=== PATIENT | male | born 1970 | race Caucasian/White ===

== ENCOUNTER 2017-03-19 21:41 | Inpatient (IN) | payer OTHER ==
[~2017-03-19] VITALS: Ht 180.3 cm; Wt 113.4 kg
[2017-03-19 21:51] VITALS: BP 132/83
--- NOTE | 2017-03-19 22:27 | NUR ---
TO ER BED 7
--- NOTE | 2017-03-19 22:30 | NUR ---
47 Y/O M W/C/O CHEST/BACK PAIN, CHIILLS AND ABCESS ON GROIN AREA. DENIES, FEVER, NAUSEA OR VOMITING. 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 ER MD MADE AWARE.
[2017-03-19] MEDS ORDERED: ASPIRIN 325 MG TAB PO ONE (23:00)
[2017-03-19] MEDS ORDERED: NITROGLYCERIN 0.4 MG TAB SL ONE (23:00)
[2017-03-19 23:23] LABS: BASOPHILS # (AUTO) 0.2 K/uL (0.00-0.22); BASOPHILS % (AUTO) 2.2 % (0.0-2.0); EOSINOPHILS # (AUTO) 0.3 K/uL (0-0.4); EOSINOPHILS % (AUTO) 4.7 % (0.0-4.0); HEMATOCRIT 43.2 % (36-52); HEMOGLOBIN 14.3 g/dL (12.0-18.0); LYMPHOCYTES # (AUTO) 2.6 K/uL (2.0-11.5); LYMPHOCYTES % (AUTO) 36.5 % (20.5-51.1); MEAN CORPUSCULAR HEMOGLOBIN 28 pg (27-31); MEAN CORPUSCULAR HGB CONC 33 g/dL (33-37); MEAN CORPUSCULAR VOLUME 85 fL (80-94); MONOCYTES # (AUTO) 0.4 K/uL (0.8-1.0); MONOCYTES % (AUTO) 5.1 % (1.7-9.3); NEUTROPHILS # (AUTO) 3.8 K/uL (1.8-7.7); NEUTROPHILS % (AUTO) 51.5 % (42.2-75.2); PLATELET COUNT (AUTO) 193 K/uL (140-450); RED BLOOD CELL COUNT(AUTO) 5.11 MIL/uL (4.20-6.10); RED CELL DISTRIBUTION WIDTH 12.8 % (11.6-13.7); WHITE BLOOD COUNT (AUTO) 7.3 K/uL (4.8-10.8)
[2017-03-19 23:36] LABS: ANION GAP 12.8 (8-16); CALCIUM 8.3 mg/dL (8.5-10.1); CARBON DIOXIDE 28.2 mmol/L (21-32); CREATININE 1.1 mg/dL (0.6-1.3)
[2017-03-19 23:43] LABS: ALBUMIN 3.7 g/dL (3.4-5.0); TOTAL BILIRUBIN 0.3 mg/dL (0.0-1.0); TOTAL PROTEIN, SERUM 7.1 g/dL (6.4-8.2)
[2017-03-19 23:56] LABS: CREATINE KINASE MB 2.2 ng/mL (0-3.6)
[2017-03-20] MEDS ORDERED: DIAZEPAM 5 MG TAB PO ONE (00:10)
[2017-03-20] MEDS ORDERED: ACETAMINOPHEN 325 MG TAB PO PRN (01:00)
[2017-03-20] MEDS ORDERED: MORPHINE SULFATE 2 MG/ML SYR IVP PRN (01:00)
[2017-03-20] MEDS ORDERED: DOCUSATE SODIUM 100 MG GELCAP PO PRN (01:00)
[2017-03-20] MEDS ORDERED: ONDANSETRON 4 MG/2 ML VIAL IVP PRN (01:00)
--- NOTE | 2017-03-20 01:05 | NUR ---
Patient will be admitted to care of [facility]. Admited to TELEMETRY. Will go to [facility]. Belongings list completed. Report to LOI ANDERSON.
[2017-03-20] MEDS ORDERED: LISINOPRIL 5 MG TAB PO SCH ×2 (01:15→21:00)
[2017-03-20] MEDS ORDERED: ATORVASTATIN 20 MG TAB PO SCH ×2 (01:15→21:00)
--- NOTE | 2017-03-20 01:17 | NUR ---
PT TRASFERRED TO TELEMETRY VIA GURNEY. ACCOMPANIED BY RN AND EMT, NO S/S OF DISTRESS NOTED ON TRASFER.
[2017-03-20 01:30] VITALS: BP 150/77
[2017-03-20 01:30] LABS: INR 1.1 (0.8-1.2); PARTIAL THROMBOPLASTIN TIME 26.2 secs (22-35.6); PROTHROMBIN TIME 10.2 secs (10.8-13.4)
--- NOTE | 2017-03-20 01:35 | NUR ---
Admitted a 47 y/o male from ED via DENICE mckee accompanied by .Pt chief complaint of BACK PAIN and DIFFICULTY BREATHING RADIATING TO LT SHOULDER. No acute respiratory distress. No c/o pain or any discomfort at this time. Saline lock gauge 22 to left AC, intact and patent with no s/s of infiltration. Skin intact, no swelling observed at this time. Oriented pt to call light, bed, phone,television, bathroom, smoking policy, visiting hours, procedures, ID bracelet on. Plan of care discussed with patient and , both verbalized understanding. Call light placed within reach. Will continue to monitor.
[2017-03-20 01:39] LABS: CHOL/HDL RATIO 8.6 (1-4.5); MAGNESIUM 2.3 mg/dL (1.8-2.4); PHOSPHORUS 3.1 mg/dL (2.5-4.9); THYROID STIMULATING HORMONE 1.28 uIU/mL (0.34-3.76)
[2017-03-20] MEDS ORDERED: LISINOPRIL 10 MG TAB ONE (01:47)
[2017-03-20] MEDS ORDERED: METOPROLOL 25 MG TAB ONE (01:52)
[2017-03-20] MEDS: METOPROLOL 25 MG TAB PO SCH ×3 (01:52→20:40)
[2017-03-20 02:40] LABS: APPEARANCE,URINE CLEAR (CLEAR); BILIRUBIN,URINE NEGATIVE (NEGATIVE); BLOOD, URINE NEGATIVE (NEGATIVE); COLOR,URINE YELLOW (YELLOW); LEUKOCYTE ESTERASE ,URINE NEGATIVE (NEGATIVE); NITRITE, URINE NEGATIVE (NEGATIVE); PROTEIN,URINE NEGATIVE (NEGATIVE); UGLUCOSE NEGATIVE (NEGATIVE)
[2017-03-20 02:49] LABS: AMPHETAMINE, URINE NEG. ng/ml (NEG <=1000); BARBITURATE, URINE NEG. ng/ml (NEG <=200); BENZODIAZEPINE, URINE NEG. ng/mL (NEG <=200); CANNABINOID, URINE NEG. ng/mL (NEG <=50); COCAINE, URINE NEG. ng/mL (NEG <=300); OPIATE, URINE NEG. ng/mL (NEG <=2000); PHENCYCLIDINE SCREEN,URINE NEG. ng/mL (NEG <=25)
[2017-03-20 02:52] LABS: BACTERIA,URINE OCCASSIONAL /HPF (None Seen); MUCUS,URINE 1+ /LPF (None Seen); RBC,URINE 0-5 (RARE) /HPF (0-5); SQUAMOUS EPITHELIAL CELL,UR 0-3 (FEW) /LPF (0-3 (FEW)); URINE AMORPHOUS URATE 1+ /HPF (None Seen); WBC,URINE 0-5 (RARE) /HPF (0-5)
--- NOTE | 2017-03-20 03:25 | NUR ---
ROUTINE ROUNDS MADE, PT SOUND ASLEEP AT THIS TIME WITH REGULAR BREATHING PATTERN. NO S/S RESPIRATORY DISTRESS. NO FACIAL GRIMACING OR MOANING INDICATING PAIN. WILL CONTINUE TO MONITOR.
[2017-03-20 04:00] VITALS: BP 139/79
--- NOTE | 2017-03-20 06:46 | NUR ---
PATIENT HAS BEEN SCREENED AND CATEGORIZED MODERATE NUTRITION RISK. PATIENT WILL BE SEEN WITHIN 3-5 DAYS OF ADMISSION. 03/22/17-03/24/17 VIELKA MIRANDA MS, RDN
--- NOTE | 2017-03-20 07:21 | NUR ---
PT AWAKE AT THIS TIME, VERBALLY RESPONSIVE. NO C/O PAIN, NO S/S RESPIRATORY DISTRESS. ENDORSED TO NEXT SHIFT FOR CONTINUITY OF CARE. PT IN STABLE CONDITION
--- NOTE | 2017-03-20 07:22 | NUR ---
PT AWAKE AND ALERT AND ORIENTED X4, NO SIGNS OF ACUTE DISTRESS, BREATHING EVEN AND UNLABORED BILATERALLY, BOWEL SOUNDS ACTIVE IN ALL 4 QUADRANTS, AMBULATORY, SKIN INTACT, IV IN LEFT AC PATENT WITH NO REDNESS, BED IN LOW POSITION WITH BILATERAL HALF SIDE RAILS UP, CALL LIGHT WITHIN REACH.
[2017-03-20 08:00] VITALS: BP 121/92
[2017-03-20 12:00] VITALS: BP 132/72
[2017-03-20] MEDS ORDERED: INSULIN LISPRO SLIDING SCALE 100 UNITS/ML VIAL SUBQ PRN (14:55)
[2017-03-20] MEDS ORDERED: DEXTROSE 50% 50 ML SYR IVP PRN (14:55)
[2017-03-20 16:00] VITALS: BP 133/76
[2017-03-20] MEDS: BLOOD GLUCOSE MONITORING 1 DEV DEV FS SCH ×2 (16:18→20:43)
--- NOTE | 2017-03-20 19:30 | NUR ---
PT AWAKE AND ALERT, NO SIGNS OF ACUTE DISTRESS. BED IN LOW POSITION WITH BILATERAL HALF SIDE RAILS UP, CALL LIGHT WITHIN REACH. ENDORSED TO ELECTROSTATIC PAINTER NURSE FOR CONTINUITY OF CARE.
--- NOTE | 2017-03-20 19:35 | NUR ---
RECEIVED FROM AM RN IN BED SLEEPING. WOKE UP EASILY WHEN TOUCHED. CARE PLANS FOR THE NIGHT DISCUSSED WITH HIM. NO SOB. DENIES PAIN AT THIS TIME. TELEMETRY MONITORING. DX. OF CHEST PAIN. DENIES ANY PAIN AT THIS TIME. IVF SITE TO LAC#20 INTACT AND NO INFILTRATION NOTED AT THIS TIME.
[2017-03-20 20:34] VITALS: BP 130/66
--- NOTE | 2017-03-20 22:00 | NUR ---
PT. STILL AWAKE AT THIS TIME. AT BEDSIDE. NO SOB. DENIES PAIN. TELEMETRY MONITORING. CALL LIGHT WITH IN REACH.
[2017-03-21 00:51] VITALS: BP 132/68
--- NOTE | 2017-03-21 00:54 | NUR ---
SLEEPING WELL AT THIS TIME. CALL LIGHT WITH IN REACH. NO SOB. NO RESTLESSNESS NOTED. TELEMETRY MONITORING.
--- NOTE | 2017-03-21 02:00 | NUR ---
SLEEPING . CALL LIGHT WITH IN REACH.
--- NOTE | 2017-03-21 04:00 | NUR ---
SLEEPING. TELEMETRY MONITORING. NO SOB. NO RESTLESSNESS NOTED. CALL LIGHT WITH IN REACH.
[2017-03-21 04:40] VITALS: BP 135/76
[2017-03-21] MEDS: BLOOD GLUCOSE MONITORING 1 DEV DEV FS SCH ×3 (05:52→16:22)
[2017-03-21 06:15] LABS: BASOPHILS # (AUTO) 0.2 K/uL (0.00-0.22); EOSINOPHILS # (AUTO) 0.4 K/uL (0-0.4); EOSINOPHILS % (AUTO) 5.2 % (0.0-4.0); HEMATOCRIT 45.8 % (36-52); LYMPHOCYTES % (AUTO) 35.2 % (20.5-51.1); MEAN CORPUSCULAR HEMOGLOBIN 28 pg (27-31); MEAN CORPUSCULAR HGB CONC 33 g/dL (33-37); MEAN CORPUSCULAR VOLUME 85 fL (80-94); MONOCYTES # (AUTO) 0.5 K/uL (0.8-1.0); MONOCYTES % (AUTO) 6.3 % (1.7-9.3); NEUTROPHILS # (AUTO) 4.4 K/uL (1.8-7.7); NEUTROPHILS % (AUTO) 51.3 % (42.2-75.2); PLATELET COUNT (AUTO) 174 K/uL (140-450); RED BLOOD CELL COUNT(AUTO) 5.42 MIL/uL (4.20-6.10); RED CELL DISTRIBUTION WIDTH 12.7 % (11.6-13.7); WHITE BLOOD COUNT (AUTO) 8.5 K/uL (4.8-10.8)
--- NOTE | 2017-03-21 06:23 | NUR ---
BLOOD SUGAR AT 96 PER FINGERSTICK. NO COVERAGE OF INSULIN. PT. PROVIDED WITH APPLE JUICE. NO COMPLAINTS OF CHEST PAIN DONE.
[2017-03-21 06:36] LABS: ANION GAP 11.7 (8-16); CALCIUM 8.4 mg/dL (8.5-10.1); CARBON DIOXIDE 26.3 mmol/L (21-32); CREATININE 0.9 mg/dL (0.6-1.3)
--- NOTE | 2017-03-21 07:26 | NUR ---
RECEIEVED PT IN BED. ASLEEP. AROUSABLE TO VOICE. ALERT ORIENTEDX 4. NO SOB. DENIES ANY PAIN OR DISCOMFORT AT THIS TIME. POSITIVE BOWEL SOUNDS NOTED ON FOUR QUADRANTS. DENIES ANY PROBLEM WITH BOWEL OR BLADDER ELIMINATION AT THIS TIME. PT AMBULATORY. SAFETY PRECAUTION IN PLACE. CALL LIGHT WITHIN REACH.
--- NOTE | 2017-03-21 07:30 | NUR ---
ENDORSED TO THE NEXT RN FOR CONTINUITY OF CARE. AWAKE AND ALERT. ABLE TO VERBALIZE NEEDS WELL. NO CHEST PAIN COMPLAINTS DONE THIS SHIFT. TELEMETRY MONITORING.
[2017-03-21 08:00] VITALS: BP 140/84
[2017-03-21] MEDS ORDERED: ASPIRIN 81 MG TAB.CHEW PO SCH (09:00)
[2017-03-21] MEDS: METOPROLOL 25 MG TAB PO SCH (09:05)
[2017-03-21 12:00] VITALS: BP 149/87
[2017-03-21] MEDS ORDERED: ASPI-1081 PO (13:29)
[2017-03-21] MEDS ORDERED: ATOR10TA51 PO (13:29)
[2017-03-21] MEDS ORDERED: NITR0.4T2 SL (13:32)
--- NOTE | 2017-03-21 14:20 | NUR ---
DR SWANSON MADE ORDER FOR DISCHARGE. BUT ORDERED TO DO ECHO FIRST BEFORE PT DISCHARGE. CALLED RADIOLOGY SPOKE TO JIM HE SAID THAT THE TRANSMISSION SUPERINTENDENT IS THE ONE WHO DOES IT. CHARGE NURSE MADE AWARE.
--- NOTE | 2017-03-21 14:25 | NUR ---
DR SWANSON MADE AWARE OF ECHOCARDIOGRAM CAN'T BE DONE TODAY DUE TO ORDER IS NOT STAT. WILL LET PT KNOW TO FOLLOW UP WITH PCP AND DO ECHOCARDIOGRAM. PT SIGNED DISCHARGE PAPERS AND VERBALIZED UNDERSTANDING. PT REQUESTED IF HE CAN STAY UNTIL DINNER SO HE CAN EAT BEFORE HE LEAVES. CHARGE NURSE AWARE AND WILL ORDER EARLY DINNER.
--- NOTE | 2017-03-21 15:48 | NUR ---
KIRSTEN FROM ULTRASOUND DEPT CAME FOR THE ORDERED ECHOCARDIOGRAM. DR SWANSON MADE AWARE.
[2017-03-21 16:00] VITALS: BP 129/72
--- NOTE | 2017-03-21 18:14 | NUR ---
PT CONSUMED 100% OF HIS DINNER. NO SOB NOTED. DENIES ANY PAIN OR DISCOMFORT. ARMBAND REMOVED. IV CANNULA REMOVED AND INTACT. WITH PT. Addendum: 03/21/17 at 1815 by Patricia Zarate RN ADDITIONAL: TELEBOX REMOVED.
--- NOTE | 2017-03-21 18:25 | NUR ---
PRESCRIPTIONS GIVEN, DISCHARGE PACKET AND EXCUSE FOR WORK PROVIDED TO PT. PT VERBALIZED UNDERSTANDING. PT WHEELED OUT TO THE HOSPITAL PARKING LOT BY ELECTRICIAN LOCOMOTIVE ON STABLE CONDITION. DENIES ANY PAIN OR DISCOMFORT AT THIS TIME. NO SOB NOTED.
--- NOTE | 2017-03-22 09:03 | NUR ---
[facility] FAXED ER REPORT, H&P, CONSULTATION AND MUSIC NOTES TO ANDREY [phone] PHONE RENEA [phone] REF NUMBER [id number]
== END 2017-03-21 18:25 | disposition home or self-care (01) | DRG 205 ==
LOC: MED 21:41 → MTU 03-20 00:51
PROVIDERS: ADMIT Family Medicine; ATTEND Family Medicine
DX: M94.0 Chondrocostal junction syndrome [Tietze] (principal); N17.0 Acute kidney failure with tubular necrosis; D68.69 Other thrombophilia; E78.00 Pure hypercholesterolemia, unspecified; I10 Essential (primary) hypertension; E11.51 Type 2 diabetes mellitus with diabetic peripheral angiopathy without gangrene; I70.209 Unspecified atherosclerosis of native arteries of extremities, unspecified extremity; E78.5 Hyperlipidemia, unspecified; J45.909 Unspecified asthma, uncomplicated; F17.210 Nicotine dependence, cigarettes, uncomplicated; Z87.01 Personal history of pneumonia (recurrent); Z83.3 Family history of diabetes mellitus; Z84.89 Family history of other specified conditions
CPT/HCPCS: 36415; 71010; 80048; 80053; 80305; 81001; 82040; 82150; 82550; 82553; 82948; 83036; 83605; 83690; 83735; 83880; 84100; 84443; 84484; 85025; 85610; 85730; 87081; 93005; 93925; 93971; 99285; Q0092

== ENCOUNTER 2019-07-15 22:17 | Emergency (ER) | payer OTHER ==
[~2019-07-15] VITALS: Ht 180.3 cm; Wt 122.5 kg
[~2019-07-15 22:17] MED LIST: ASPI-1129 PO; ATOR10TA51 PO; NITR0.4T2 SL
[2019-07-15 22:20] VITALS: BP 130/74
[2019-07-16] LABS: BASOPHILS % (AUTO) 0.7 % (0.0-2.0); EOSINOPHILS # (AUTO) 0.3 K/uL (0-0.4); EOSINOPHILS % (AUTO) 4.7 % (0.0-4.0); HEMATOCRIT 43.6 % (36-52); HEMOGLOBIN 14.7 g/dL (12.0-18.0); LYMPHOCYTES # (AUTO) 2.6 K/uL (2.0-11.5); LYMPHOCYTES % (AUTO) 37.6 % (20.5-51.1); MEAN CORPUSCULAR HEMOGLOBIN 28 pg (27-31); MEAN CORPUSCULAR HGB CONC 34 g/dL (33-37); MEAN CORPUSCULAR VOLUME 84.2 fL (80-94); MONOCYTES # (AUTO) 0.4 K/uL (0.8-1.0); MONOCYTES % (AUTO) 5.2 % (1.7-9.3); NEUTROPHILS # (AUTO) 3.6 K/uL (1.8-7.7); NEUTROPHILS % (AUTO) 51.8 % (42.2-75.2); PLATELET COUNT (AUTO) 183 K/uL (140-450); RED BLOOD CELL COUNT(AUTO) 5.19 MIL/uL (4.20-6.10); RED CELL DISTRIBUTION WIDTH 13.4 % (11.6-13.7)
[2019-07-16 00:10] LABS: ANION GAP 12.3 (8-16); CARBON DIOXIDE 26.8 mmol/L (21-32); CHLORIDE 102 mmol/L (98-107); GFR ARICAN-AMERICAN 102 mL/min (>90); GLUCOSE 283 mg/dL (74-106); POTASSIUM 4.1 mmol/L (3.5-5.1); SODIUM SERUM 137 mmol/L (136-145); UREA NITROGEN, BLOOD 12 mg/dL (7-18)
[2019-07-16] MEDS ORDERED: NACL 0.9% 1,000 ML IV ONE (00:15)
[2019-07-16 00:17] LABS: ACETONE, SERUM NEGATIVE (NEGATIVE)
[2019-07-16 00:19] LABS: ALBUMIN 3.8 g/dL (3.4-5.0); ASPARTATE AMINOTRANSFERASE 53 U/L (15-37); TOTAL BILIRUBIN 0.5 mg/dL (0.0-1.0)
[2019-07-16] MEDS ORDERED: KETOROLAC 30 MG/ML VIAL IVP ONE (01:05)
[2019-07-16 01:46] VITALS: BP 129/73
== END 2019-07-16 01:46 | disposition home or self-care (01) ==
LOC: MED 22:17
DX: E11.65 Type 2 diabetes mellitus with hyperglycemia (principal); H00.014 Hordeolum externum left upper eyelid; M54.5 Low back pain; E78.5 Hyperlipidemia, unspecified; I25.2 Old myocardial infarction; Z79.82 Long term (current) use of aspirin; Z98.890 Other specified postprocedural states
CPT/HCPCS: 36415; 80053; 82009; 82948; 85025; 96361; 96374; 99283; J1885; J7030

== ENCOUNTER 2019-10-12 22:20 | Emergency (ER) | payer OTHER ==
[~2019-10-12] VITALS: Ht 180.3 cm; Wt 122.5 kg
[2019-10-12 22:26] VITALS: BP 141/84
--- NOTE | 2019-10-12 22:38 | NUR ---
PT AMBULATED TO LOBBY TO A/W BED
--- NOTE | 2019-10-12 23:10 | NUR ---
PT AMBULATED TO BED 3
--- NOTE | 2019-10-12 23:21 | NUR ---
49 Y/O MALE C/O HEADACHE AND DIZZINESS X1 DAY. PT STATES HE TOOK HIS BLOOD PRESSURE AT HOME AND IT WAS HIGH. DENIES FEVER. PT STATES +NAUSEA. DENIES VOMITING/DIARRHEA. PT DENIES CHEST PAIN. RR EVEN AND UNLABORED. PT CALM AND PLEASANT SITTING IN BED, BED LOCKED AND IN LOW POSITION X1 SIDERAIL RAISED. AT BEDSIDE. VSS. MEDHX: DM ALLERGIES: NKA
--- NOTE | 2019-10-12 23:58 | NUR ---
PT RESTING WITH EYES CLOSED, VISIBLE RISE AND FALL OF THE CHEST. AROUSABLE TO NAME. RR EVEN AND UNLABORED. DENIES PAIN AT THIS TIME. AT BEDSIDE. VSS. WILL CONTINUE TO MONITOR.
--- NOTE | 2019-10-13 00:16 | NUR ---
DR. ARITA BEDSIDE EVALUATING PT
--- NOTE | 2019-10-13 00:30 | NUR ---
PT PLACED ON THE MONITOR.
[2019-10-13 00:49] LABS: BASOPHILS # (AUTO) 0.1 K/uL (0.00-0.22); BASOPHILS % (AUTO) 0.7 % (0.0-2.0); EOSINOPHILS # (AUTO) 0.3 K/uL (0-0.4); EOSINOPHILS % (AUTO) 4.1 % (0.0-4.0); HEMATOCRIT 42.5 % (36-52); HEMOGLOBIN 14.2 g/dL (12.0-18.0); LYMPHOCYTES # (AUTO) 2.8 K/uL (2.0-11.5); LYMPHOCYTES % (AUTO) 39.7 % (20.5-51.1); MEAN CORPUSCULAR HEMOGLOBIN 29 pg (27-31); MEAN CORPUSCULAR HGB CONC 33 g/dL (33-37); MEAN CORPUSCULAR VOLUME 85.5 fL (80-94); MONOCYTES # (AUTO) 0.4 K/uL (0.8-1.0); MONOCYTES % (AUTO) 5.7 % (1.7-9.3); NEUTROPHILS # (AUTO) 3.5 K/uL (1.8-7.7); NEUTROPHILS % (AUTO) 49.8 % (42.2-75.2); PLATELET COUNT (AUTO) 178 K/uL (140-450); RED BLOOD CELL COUNT(AUTO) 4.97 MIL/uL (4.20-6.10); RED CELL DISTRIBUTION WIDTH 13.6 % (11.6-13.7); WHITE BLOOD COUNT (AUTO) 7.1 K/uL (4.8-10.8)
[2019-10-13 01:01] LABS: ANION GAP 16.8 (8-16); CREATININE 0.9 mg/dL (0.7-1.3); POTASSIUM 3.8 mmol/L (3.5-5.1)
[2019-10-13 01:12] LABS: ALBUMIN 3.6 g/dL (3.4-5.0); CREATINE KINASE MB 1.3 ng/mL (0-3.6); TOTAL BILIRUBIN 0.3 mg/dL (0.0-1.0)
--- NOTE | 2019-10-13 02:01 | NUR ---
PT AMBULATED TO RESTROOM WITH STEADY GAIT
--- NOTE | 2019-10-13 02:05 | NUR ---
PT STATES HE IS SLIGHTLY DIZZY AT THIS TIME. 12/11 HEADACHE. VSS. WILL CONTINUE TO MONITOR.
[2019-10-13 02:32] VITALS: BP 141/84
--- NOTE | 2019-10-13 02:32 | NUR ---
Patient discharged with v/s stable. Written and verbal after care instructions given and explained. Patient verbalized understanding. Ambulatory with steady gait. All questions addressed prior to discharge. Advised to follow up with PMD. PT ACCOMPANIED BY .
== END 2019-10-13 02:32 | disposition home or self-care (01) ==
LOC: MED 22:20
DX: I10 Essential (primary) hypertension (principal); E11.9 Type 2 diabetes mellitus without complications; I25.2 Old myocardial infarction; Z79.82 Long term (current) use of aspirin; Z79.899 Other long term (current) drug therapy; Z98.890 Other specified postprocedural states
CPT/HCPCS: 36415; 80053; 82550; 82553; 82948; 84484; 85025; 93005; 99284

== ENCOUNTER 2020-08-22 19:09 | Emergency (ER) | payer OTHER ==
[~2020-08-22] VITALS: Ht 177.8 cm; Wt 106.6 kg
[2020-08-22 19:13] VITALS: BP 121/75
--- NOTE | 2020-08-22 19:17 | NUR ---
To ED bed 04
[2020-08-22] MEDS ORDERED: IBUPROFEN 800 MG TAB PO ONE (20:10)
--- NOTE | 2020-08-22 20:54 | NUR ---
50 y/o male c/o groin/ pelvic pain x 4 days. pt states 6/10 pain. denies dysuria. +urinary hesitancy. abd soft non tender. lung sounds clear. vss. pmhx: testicular cyst, DM, asthma, 2 IA (last IA march 2020) nka
--- NOTE | 2020-08-22 20:54 | NUR ---
[facility]ASOUND AT BEDSIDE
[2020-08-22 20:59] LABS: APPEARANCE,URINE CLEAR (CLEAR); BILIRUBIN,URINE NEGATIVE (NEGATIVE); BLOOD, URINE NEGATIVE (NEGATIVE); COLOR,URINE YELLOW (YELLOW); LEUKOCYTE ESTERASE ,URINE NEGATIVE (NEGATIVE); NITRITE, URINE NEGATIVE (NEGATIVE); UGLUCOSE NEGATIVE (NEGATIVE)
[2020-08-22] MEDS ORDERED: KETOROLAC 30 MG/ML VIAL IVP ONE (21:50)
[2020-08-22] MEDS ORDERED: NACL 0.9% 500 ML IV ONE (21:50)
--- NOTE | 2020-08-22 21:50 | NUR ---
Note wailda in EDM - 08/22/20 at 2154 by [email or web address] CALLED POISON CONTROL SPOKE WITH JACE STAETS TO MONITOR FOR CERVANTES, BLISTERS OR EXCESSIVE SALIVATION. IF NONE OF THE SYMPTOMS SHOWING, STABLE CONDITION. ERMD MADE AWARE.
--- NOTE | 2020-08-22 22:13 | NUR ---
PT TAKEN TO CT SCAN VIA W/C
[2020-08-22 22:16] LABS: BASOPHILS # (AUTO) 0.1 K/uL (0.00-0.22); BASOPHILS % (AUTO) 1.4 % (0.0-2.0); EOSINOPHILS # (AUTO) 0.4 K/uL (0-0.4); HEMATOCRIT 43.6 % (36-52); HEMOGLOBIN 14.9 g/dL (12.0-18.0); LYMPHOCYTES # (AUTO) 3.2 K/uL (2.0-11.5); MEAN CORPUSCULAR HEMOGLOBIN 29 pg (27-31); MEAN CORPUSCULAR HGB CONC 34 g/dL (33-37); MEAN CORPUSCULAR VOLUME 83.8 fL (80-94); MONOCYTES # (AUTO) 0.4 K/uL (0.8-1.0); MONOCYTES % (AUTO) 5.4 % (1.7-9.3); NEUTROPHILS # (AUTO) 3.9 K/uL (1.8-7.7); NEUTROPHILS % (AUTO) 48.2 % (42.2-75.2); PLATELET COUNT (AUTO) 187 K/uL (140-450); RED CELL DISTRIBUTION WIDTH 13.7 % (11.6-13.7)
[2020-08-22 22:31] LABS: ALBUMIN 3.8 g/dL (3.4-5.0); ANION GAP 12.5 (8-16); CARBON DIOXIDE 27.4 mmol/L (21-32); CREATININE 0.8 mg/dL (0.6-1.3); POTASSIUM 3.9 mmol/L (3.5-5.1); TOTAL BILIRUBIN 0.4 mg/dL (0.0-1.0)
--- NOTE | 2020-08-22 23:50 | NUR ---
IV removed, catheter intact and site benign. Applied folded 4x4 gauze and tape to stop bleeding.
--- NOTE | 2020-08-22 23:56 | NUR ---
Patient discharged with v/s stable. Written and verbal after care instructions given and explained. Patient verbalized understanding. Ambulatory with steady gait. All questions addressed prior to discharge. Advised to follow up with PMD.
== END 2020-08-22 23:56 | disposition home or self-care (01) ==
LOC: MED 19:09
DX: R10.30 Lower abdominal pain, unspecified (principal); I86.1 Scrotal varices; E11.9 Type 2 diabetes mellitus without complications; I10 Essential (primary) hypertension; I51.89 Other ill-defined heart diseases; J45.909 Unspecified asthma, uncomplicated; Z98.890 Other specified postprocedural states; Z79.899 Other long term (current) drug therapy
CPT/HCPCS: 36415; 74176; 76870; 80053; 81003; 85025; 96361; 96374; 99285; J1885; J7030; Q0092

== ENCOUNTER 2023-01-25 03:04 | Emergency (ER) | payer MEDICAID, OTHER ==
[~2023-01-25] VITALS: Ht 177.8 cm; Wt 111.6 kg
[2023-01-25 03:06] VITALS: BP 135/70
--- NOTE | 2023-01-25 03:09 | NUR ---
TO LOBBY A/W BED AMBULATORY
--- NOTE | 2023-01-25 04:25 | NUR ---
SEEN AND EXAMINED BY [facility]
[2023-01-25] MEDS ORDERED: KETOROLAC 60 MG/2 ML VIAL IM ONE (04:30)
[2023-01-25] MEDS ORDERED: NAPR-54 PO (05:53)
[2023-01-25 05:58] VITALS: BP 135/70
--- NOTE | 2023-01-25 05:59 | NUR ---
Patient discharged with v/s stable. Written and verbal after care instructions given and explained. New rx for naproxen. Patient verbalized understanding. Ambulatory with steady gait. All questions addressed prior to discharge. Advised to follow up with PMD.
== END 2023-01-25 05:59 | disposition home or self-care (01) ==
LOC: MED 03:04
DX: M79.604 Pain in right leg (principal); M79.605 Pain in left leg; J45.909 Unspecified asthma, uncomplicated; E11.9 Type 2 diabetes mellitus without complications; E78.5 Hyperlipidemia, unspecified; I10 Essential (primary) hypertension; I25.2 Old myocardial infarction; I25.10 Atherosclerotic heart disease of native coronary artery without angina pectoris; Z79.899 Other long term (current) drug therapy; Z79.2 Long term (current) use of antibiotics; Z79.1 Long term (current) use of non-steroidal anti-inflammatories (NSAID)
CPT/HCPCS: 96372; 99283; J1885

== ENCOUNTER 2023-07-26 00:30 | Emergency (ER) | payer MEDICAID ==
[~2023-07-26] VITALS: Ht 177.8 cm; Wt 111.6 kg
[~2023-07-26 00:30] MED LIST changes: +NAPR-54 PO
[2023-07-26 00:35] VITALS: BP 139/85; PULSE 68; RESP 16; TEMP 98; O2SAT 96
[2023-07-26] MEDS ORDERED: KETOROLAC 30 MG/ML VIAL IM ONE (02:30)
[2023-07-26] MEDS ORDERED: ACET-8905 PO (02:31)
[2023-07-26] MEDS ORDERED: AMOX500C25 PO (02:31)
[2023-07-26] MEDS ORDERED: NAPR-54 PO (02:31)
== END 2023-07-26 02:41 | disposition home or self-care (01) ==
LOC: MED 00:30
DX: K04.7 Periapical abscess without sinus (principal); J45.909 Unspecified asthma, uncomplicated; I25.2 Old myocardial infarction; E11.9 Type 2 diabetes mellitus without complications; I10 Essential (primary) hypertension; Z79.899 Other long term (current) drug therapy; Z98.890 Other specified postprocedural states
CPT/HCPCS: 96372; 99283; J1885

== ENCOUNTER 2024-02-15 23:10 | Inpatient (IN) | payer MEDICAID ==
[~2024-02-15] VITALS: Ht 180.3 cm; Wt 111.1 kg
[~2024-02-15 23:10] MED LIST changes: +ACET-8905 PO; +AMOX500C25 PO; +NAPR-337 PO; -NAPR-54 PO
[2024-02-15 23:28] VITALS: BP 149/91; PULSE 67; RESP 16; TEMP 97.4; O2SAT 97
[2024-02-16] VITALS (10 sets, daily range): BP systolic 117–145; BP diastolic 63–87; PULSE 18–67; RESP 12–18; TEMP 97–98.3; O2SAT 94–98
[2024-02-16 00:32] LABS: BASOPHILS % (AUTO) 0.6 % (0.0-2.0); EOSINOPHILS # (AUTO) 0.1 K/uL (0-0.4); EOSINOPHILS % (AUTO) 1.7 % (0.0-4.0); HEMOGLOBIN 14.6 g/dL (12.0-18.0); LYMPHOCYTES # (AUTO) 2.4 K/uL (2.0-11.5); LYMPHOCYTES % (AUTO) 30.3 % (20.5-51.1); MEAN CORPUSCULAR HEMOGLOBIN 29 pg (27-31); MEAN CORPUSCULAR HGB CONC 34 g/dL (33-37); MEAN CORPUSCULAR VOLUME 83.8 fL (80-94); MONOCYTES # (AUTO) 0.6 K/uL (0.8-1.0); MONOCYTES % (AUTO) 7.4 % (1.7-9.3); NEUTROPHILS # (AUTO) 4.8 K/uL (1.8-7.7); PLATELET COUNT (AUTO) 202 K/uL (140-450); RED BLOOD CELL COUNT(AUTO) 5.13 MIL/uL (4.20-6.10); RED CELL DISTRIBUTION WIDTH 13.6 % (11.6-13.7)
[2024-02-16] MEDS: TENECTEPLASE 50 MG KIT IV ONE (00:56)
[2024-02-16 01:02] LABS: ANION GAP 11.1 (8-16); CALCIUM 8.7 mg/dL (8.5-10.1); CARBON DIOXIDE 24.3 mmol/L (21-32); CREATININE 0.8 mg/dL (0.6-1.3); POTASSIUM 3.4 mmol/L (3.5-5.1)
[2024-02-16 01:15] LABS: ALANINE AMINOTRANSFERASE 31 U/L (12-78); ALBUMIN 4.1 g/dL (3.4-5.0); ALKALINE PHOSPHATASE 95 U/L (50-136); ASPARTATE AMINOTRANSFERASE 20 U/L (15-37); BILIRUBIN,DIRECT 0.1 mg/dL (0.0-0.3); TOTAL BILIRUBIN 0.4 mg/dL (0.0-1.0)
[2024-02-16] MEDS ORDERED: MORPHINE SULFATE 2 MG/ML SYR IVP PRN (06:15)
[2024-02-16] MEDS ORDERED: ONDANSETRON 4 MG/2 ML VIAL IVP PRN (06:15)
[2024-02-16] MEDS: NACL 0.9% 1,000 ML IV SCH (07:10)
[2024-02-16] MEDS: HYDROcodone/APAP 5/325 MG 1 TAB TAB PO PRN (07:36)
[2024-02-16 07:49] LABS: CHOL/HDL RATIO 3.5 (1-4.5)
[2024-02-16] MEDS: ENOXAPARIN 40 MG/0.4 ML SYR SUBQ SCH (08:23)
[2024-02-16 10:38] LABS: FLU A ANTIGEN negative (NEGATIVE); FLU B ANTIGEN NEGATIVE (NEGATIVE)
[2024-02-16] MEDS: ATORVASTATIN 20 MG TAB PO SCH (21:05)
[2024-02-16] MEDS: ACETAMINOPHEN 325 MG TAB PO PRN (21:07)
[2024-02-17] VITALS (7 sets, daily range): BP systolic 133–142; BP diastolic 75–88; PULSE 54–70; RESP 18–20; TEMP 96.7–98.2; O2SAT 96–99
[2024-02-17 05:55] LABS: BASOPHILS % (AUTO) 0.6 % (0.0-2.0); EOSINOPHILS # (AUTO) 0.2 K/uL (0-0.4); EOSINOPHILS % (AUTO) 3.5 % (0.0-4.0); HEMATOCRIT 42.9 % (36-52); HEMOGLOBIN 14.4 g/dL (12.0-18.0); LYMPHOCYTES # (AUTO) 2.2 K/uL (2.0-11.5); LYMPHOCYTES % (AUTO) 33.9 % (20.5-51.1); MEAN CORPUSCULAR HEMOGLOBIN 29 pg (27-31); MEAN CORPUSCULAR HGB CONC 34 g/dL (33-37); MEAN CORPUSCULAR VOLUME 84.8 fL (80-94); MONOCYTES # (AUTO) 0.4 K/uL (0.8-1.0); MONOCYTES % (AUTO) 6.6 % (1.7-9.3); NEUTROPHILS # (AUTO) 3.6 K/uL (1.8-7.7); NEUTROPHILS % (AUTO) 55.4 % (42.2-75.2); PLATELET COUNT (AUTO) 182 K/uL (140-450); RED BLOOD CELL COUNT(AUTO) 5.06 MIL/uL (4.20-6.10); WHITE BLOOD COUNT (AUTO) 6.6 K/uL (4.8-10.8)
[2024-02-17 06:35] LABS: ALBUMIN 3.5 g/dL (3.4-5.0); ANION GAP 11.2 (8-16); CALCIUM 8.4 mg/dL (8.5-10.1); CARBON DIOXIDE 26.8 mmol/L (21-32); CREATININE 0.8 mg/dL (0.6-1.3); MAGNESIUM 2.1 mg/dL (1.8-2.4); TOTAL BILIRUBIN 0.6 mg/dL (0.0-1.0); TOTAL PROTEIN, SERUM 6.1 g/dL (6.4-8.2)
[2024-02-17] MEDS: ASPIRIN 81 MG TAB.CHEW PO SCH (08:25)
[2024-02-17] MEDS ORDERED: TRAZ-343 PO (13:02)
[2024-02-17] MEDS ORDERED: PAX10 PO (13:02)
[2024-02-17] MEDS ORDERED: CLOP-68 PO (13:02)
[2024-02-17] MEDS ORDERED: ATOR20TA40 PO (13:02)
[2024-02-17] MEDS ORDERED: ASPI81CT95 PO (13:02)
== END 2024-02-17 13:44 | disposition home or self-care (01) | DRG 47 ==
LOC: MED 23:10 → MIC 02-16 05:54 → MTU 02-16 12:57
PROVIDERS: ADMIT Internal Medicine; ATTEND Internal Medicine
DX: G45.9 Transient cerebral ischemic attack, unspecified (principal); E11.9 Type 2 diabetes mellitus without complications; I10 Essential (primary) hypertension; R29.702 NIHSS score 2; N40.0 Benign prostatic hyperplasia without lower urinary tract symptoms; E87.6 Hypokalemia; Z20.822 Contact with and (suspected) exposure to COVID-19; E78.00 Pure hypercholesterolemia, unspecified; E78.5 Hyperlipidemia, unspecified; Z79.899 Other long term (current) drug therapy; Z86.73 Personal history of transient ischemic attack (TIA), and cerebral infarction without residual deficits; I25.2 Old myocardial infarction
CPT/HCPCS: 36415; 70450; 71045; 80048; 80053; 80076; 83735; 83880; 84484; 85025; 87081; 93005; 96374; 97116; 97163-GP; 99291; J1650; J3101; Q9967

== ENCOUNTER 2024-02-20 19:46 | Emergency (ER) | payer MEDICAID ==
[~2024-02-20] VITALS: Ht 165.1 cm; Wt 113.4 kg
[~2024-02-20 19:46] MED LIST changes: -AMOX500C25 PO; +ASPI81CT95 PO; -ATOR10TA51 PO; +ATOR20TA40 PO; +CLOP-68 PO; -NAPR-337 PO; +PAX10 PO; +TRAZ-343 PO
[2024-02-20 19:51] VITALS: BP 117/67; PULSE 66; RESP 15; TEMP 98.7; O2SAT 96
[2024-02-20 20:19] LABS: BASOPHILS # (AUTO) 0.1 K/uL (0.00-0.22); BASOPHILS % (AUTO) 0.8 % (0.0-2.0); EOSINOPHILS # (AUTO) 0.3 K/uL (0-0.4); EOSINOPHILS % (AUTO) 3.4 % (0.0-4.0); HEMATOCRIT 41.5 % (36-52); HEMOGLOBIN 14.1 g/dL (12.0-18.0); LYMPHOCYTES # (AUTO) 2.6 K/uL (2.0-11.5); LYMPHOCYTES % (AUTO) 31.6 % (20.5-51.1); MEAN CORPUSCULAR HEMOGLOBIN 29 pg (27-31); MEAN CORPUSCULAR HGB CONC 34 g/dL (33-37); MEAN CORPUSCULAR VOLUME 84.4 fL (80-94); MONOCYTES # (AUTO) 0.5 K/uL (0.8-1.0); MONOCYTES % (AUTO) 6.2 % (1.7-9.3); NEUTROPHILS # (AUTO) 4.8 K/uL (1.8-7.7); PLATELET COUNT (AUTO) 186 K/uL (140-450); RED BLOOD CELL COUNT(AUTO) 4.91 MIL/uL (4.20-6.10); RED CELL DISTRIBUTION WIDTH 13.9 % (11.6-13.7); WHITE BLOOD COUNT (AUTO) 8.2 K/uL (4.8-10.8)
[2024-02-20 20:35] LABS: ALBUMIN 3.7 g/dL (3.4-5.0); ANION GAP 9.3 (8-16); CALCIUM 8.5 mg/dL (8.5-10.1); CARBON DIOXIDE 28.7 mmol/L (21-32); CREATININE 0.9 mg/dL (0.6-1.3); TOTAL BILIRUBIN 0.5 mg/dL (0.0-1.0); TOTAL PROTEIN, SERUM 6.4 g/dL (6.4-8.2)
[2024-02-21] MEDS: ACETAMINOPHEN EXTRA STRENGTH 500 MG TAB PO ONE (01:55)
[2024-02-21 03:32] VITALS: BP 117/67; PULSE 66; RESP 15; TEMP 98.7; O2SAT 96
== END 2024-02-21 03:32 | disposition home or self-care (01) ==
LOC: MED 19:46
DX: R07.9 Chest pain, unspecified (principal); R51.9 Headache, unspecified; J45.909 Unspecified asthma, uncomplicated; I25.10 Atherosclerotic heart disease of native coronary artery without angina pectoris; E11.9 Type 2 diabetes mellitus without complications; Z79.4 Long term (current) use of insulin; Z79.899 Other long term (current) drug therapy
CPT/HCPCS: 36415; 71045; 80053; 83880; 84484; 85025; 93005; 99285

== ENCOUNTER 2024-05-23 20:53 | Observation (INO) | payer MEDICAID ==
[~2024-05-23] VITALS: Ht 177.8 cm; Wt 81.6 kg
[2024-05-23 21:20] VITALS: BP 113/64; PULSE 64; RESP 16; TEMP 97.4; O2SAT 98
[2024-05-23 22:22] LABS: BASOPHILS # (AUTO) 0.1 K/uL (0.00-0.22); BASOPHILS % (AUTO) 0.7 % (0.0-2.0); EOSINOPHILS # (AUTO) 0.3 K/uL (0-0.4); EOSINOPHILS % (AUTO) 3.9 % (0.0-4.0); HEMATOCRIT 41.6 % (36-52); HEMOGLOBIN 13.8 g/dL (12.0-18.0); LYMPHOCYTES % (AUTO) 39.2 % (20.5-51.1); MEAN CORPUSCULAR HEMOGLOBIN 28 pg (27-31); MEAN CORPUSCULAR HGB CONC 33 g/dL (33-37); MEAN CORPUSCULAR VOLUME 84.7 fL (80-94); MONOCYTES # (AUTO) 0.5 K/uL (0.8-1.0); MONOCYTES % (AUTO) 6.6 % (1.7-9.3); NEUTROPHILS # (AUTO) 3.7 K/uL (1.8-7.7); NEUTROPHILS % (AUTO) 49.6 % (42.2-75.2); PLATELET COUNT (AUTO) 169 K/uL (140-450); RED BLOOD CELL COUNT(AUTO) 4.92 MIL/uL (4.20-6.10); WHITE BLOOD COUNT (AUTO) 7.5 K/uL (4.8-10.8)
[2024-05-23 22:37] LABS: ANION GAP 13.3 (8-16); CALCIUM 8.9 mg/dL (8.5-10.1); CARBON DIOXIDE 24.8 mmol/L (21-32); CREATININE 1.1 mg/dL (0.6-1.3); POTASSIUM 4.1 mmol/L (3.5-5.1)
[2024-05-23 22:45] LABS: ALANINE AMINOTRANSFERASE 29 U/L (12-78); ALBUMIN 3.8 g/dL (3.4-5.0); ALKALINE PHOSPHATASE 100 U/L (50-136); ASPARTATE AMINOTRANSFERASE 14 U/L (15-37); BILIRUBIN,DIRECT 0.1 mg/dL (0.0-0.3); TOTAL BILIRUBIN 0.4 mg/dL (0.0-1.0); TOTAL PROTEIN, SERUM 6.9 g/dL (6.4-8.2)
[2024-05-23] MEDS: ASPIRIN 325 MG TAB PO ONE (23:46)
[2024-05-23] MEDS ORDERED: ONDANSETRON 4 MG/2 ML VIAL IVP PRN (23:50)
[2024-05-23] MEDS ORDERED: ACETAMINOPHEN 325 MG TAB PO PRN (23:50)
[2024-05-23] MEDS ORDERED: HYDROcodone/APAP 5/325 MG 1 TAB TAB PO PRN (23:50)
[2024-05-23] MEDS ORDERED: MORPHINE SULFATE 2 MG/ML SYR IVP PRN (23:50)
[2024-05-23] MEDS ORDERED: NITROGLYCERIN 0.4 MG TAB SL SCH (23:55)
[2024-05-23] MEDS: NACL 0.9% 1,000 ML IV SCH (23:56)
[2024-05-24] VITALS (8 sets, daily range): BP systolic 118–129; BP diastolic 67–79; PULSE 55–86; RESP 16–18; TEMP 97.2–97.6; O2SAT 94–100
[2024-05-24] MEDS: ALBUTEROL 0.083% 2.5 MG/3 ML NEBU INH SCH (01:00)
[2024-05-24] MEDS: IPRATROPIUM 0.02% 0.5 MG/2.5 ML NEBU INH SCH (01:00)
[2024-05-24] MEDS ORDERED: INSULIN LISPRO SLIDING SCALE 100 UNITS/ML VIAL SUBQ PRN (02:45)
[2024-05-24] MEDS ORDERED: DEXTROSE 50% 50 ML SYR IVP PRN (02:45)
[2024-05-24 06:39] LABS: BASOPHILS # (AUTO) 0.1 K/uL (0.00-0.22); EOSINOPHILS # (AUTO) 0.3 K/uL (0-0.4); EOSINOPHILS % (AUTO) 4.3 % (0.0-4.0); HEMATOCRIT 40.4 % (36-52); HEMOGLOBIN 13.7 g/dL (12.0-18.0); LYMPHOCYTES # (AUTO) 2.3 K/uL (2.0-11.5); LYMPHOCYTES % (AUTO) 35.5 % (20.5-51.1); MEAN CORPUSCULAR HEMOGLOBIN 28 pg (27-31); MEAN CORPUSCULAR HGB CONC 34 g/dL (33-37); MONOCYTES # (AUTO) 0.5 K/uL (0.8-1.0); MONOCYTES % (AUTO) 7.4 % (1.7-9.3); NEUTROPHILS # (AUTO) 3.4 K/uL (1.8-7.7); NEUTROPHILS % (AUTO) 51.8 % (42.2-75.2); PLATELET COUNT (AUTO) 149 K/uL (140-450); RED BLOOD CELL COUNT(AUTO) 4.81 MIL/uL (4.20-6.10); RED CELL DISTRIBUTION WIDTH 13.9 % (11.6-13.7); WHITE BLOOD COUNT (AUTO) 6.5 K/uL (4.8-10.8)
[2024-05-24 07:02] LABS: ANION GAP 14.6 (8-16); CALCIUM 8.2 mg/dL (8.5-10.1); CARBON DIOXIDE 22.2 mmol/L (21-32); CREATININE 0.9 mg/dL (0.6-1.3); POTASSIUM 3.8 mmol/L (3.5-5.1)
[2024-05-24] MEDS: BLOOD GLUCOSE MONITORING 1 DEV DEV FS SCH (07:19)
[2024-05-24] MEDS: PARoxetine 10 MG TAB PO SCH (08:43)
[2024-05-24] MEDS: CLOPIDOGREL 75 MG TAB PO SCH (08:43)
[2024-05-24] MEDS: ASPIRIN 81 MG TAB.CHEW PO SCH (08:43)
[2024-05-24] MEDS ORDERED: traZODone 50 MG TAB PO SCH (21:00)
[2024-05-24] MEDS ORDERED: ATORVASTATIN 20 MG TAB PO SCH (21:00)
== END 2024-05-24 18:51 | disposition home or self-care (01) ==
LOC: MED 20:53 → MTU 23:48 → MMU 05-24 00:44
PROVIDERS: ADMIT Student in an Organized Health Care Education/Training Program; ATTEND Student in an Organized Health Care Education/Training Program
DX: R07.89 Other chest pain (principal); J45.909 Unspecified asthma, uncomplicated; E11.9 Type 2 diabetes mellitus without complications; E78.5 Hyperlipidemia, unspecified; I25.2 Old myocardial infarction; Z86.2 Personal history of diseases of the blood and blood-forming organs and certain disorders involving the immune mechanism; Z79.899 Other long term (current) drug therapy
CPT/HCPCS: 36415; 71045; 80048; 80076; 82948; 83735; 83880; 84484; 85025; 87081; 93005; 94640; 94760; 96360; 96361; 99285; G0378; J1815; J7613; J7644; Q0092; 99284

== ENCOUNTER 2024-07-04 10:40 | Emergency (ER) | payer MEDICAID ==
[~2024-07-04] VITALS: Ht 177.8 cm; Wt 120.4 kg
[2024-07-04 10:51] VITALS: BP 128/84; PULSE 65; RESP 20; TEMP 97.2; O2SAT 98
[2024-07-04] MEDS: METOCLOPRAMIDE 10 MG TAB PO ONE (12:48)
[2024-07-04] MEDS: KETOROLAC 30 MG/ML VIAL IM ONE (12:49)
[2024-07-04] MEDS ORDERED: CARB15DR61 OT (13:39)
[2024-07-04] MEDS ORDERED: FLONAS NS (13:39)
[2024-07-04] MEDS ORDERED: LORA10TA60 PO (13:39)
--- NOTE | 2024-07-04 13:49 | NUR ---
Patient discharged with v/s stable. Written and verbal after care instructions given FOR EARWAX BUILDUP,GENERAL HEADACHE W OUT CAUSE Patient alert, oriented and verbalized understanding of instructions. Ambulatory with steady gait. All questions addressed prior to discharge. ID band removed. Patient advised to follow up with PMD. Rx of DEBROX,FLONASE NASAL,LORATADINE given.Opportunity to ask questions provided and answered.
== END 2024-07-04 15:54 | disposition home or self-care (01) ==
LOC: MED 10:40
DX: R51.9 Headache, unspecified (principal); R03.0 Elevated blood-pressure reading, without diagnosis of hypertension; F41.9 Anxiety disorder, unspecified; J45.909 Unspecified asthma, uncomplicated; I25.2 Old myocardial infarction; E11.9 Type 2 diabetes mellitus without complications; Z79.899 Other long term (current) drug therapy; Z79.82 Long term (current) use of aspirin; Z86.73 Personal history of transient ischemic attack (TIA), and cerebral infarction without residual deficits; F32.9 Major depressive disorder, single episode, unspecified
CPT/HCPCS: 96372; 99283; J1885; J8597; Q0163